=== PATIENT | male | born 1995 | race Caucasian/White ===

== ENCOUNTER 2020-10-31 13:44 | Outpatient (REF) | payer MEDICAID, SELFPAY | END 2020-10-31 13:45 | disposition home or self-care (01) | LOC: HO.LAB 13:44 | PROVIDERS: Visit Provider Internal Medicine | DX: Z20.822 Contact with and (suspected) exposure to COVID-19 (principal) | CPT/HCPCS: 36415; C9803; U0003; U0005 ==

== ENCOUNTER 2022-04-09 02:33 | Emergency (ER) | payer MEDICAID, SELFPAY ==
[2022-04-09 02:53] VITALS: BP 126/70; PULSE 91; O2SAT 97
[2022-04-09 02:54] VITALS: BP 105/65; PULSE 81; RESP 16; TEMP 36.8; O2SAT 94; BMI 19.0
[2022-04-09 02:59] VITALS: PULSE 72; RESP 12; O2SAT 96
--- NOTE | 2022-04-09 03:07 | ED.OVERDOSE ---
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 takes 1 or 2 tablets a day today he took a pill which was given by bystander after taking the pill patient been feeling like a zombie feel too strong making him tired vomited 1 time prior to arrival patient denied use of fentanyl or other opiates in the past other than Percocet Related Data Allergies Allergy/AdvReac Type Severity Reaction Status Date / Time No Known Allergies Allergy Unverified 06/13/20 17:08 Review of Systems Review of Systems: Yes all other systems are reviewed and are negative Physical Exam Vital Signs: Vital Signs: Last Vital Signs Temp 98.2 F 04/09/22 02:54 Pulse 72 04/09/22 02:59 Resp 12 04/09/22 02:59 BP 105/65 04/09/22 02:54 Pulse Ox 96 04/09/22 02:59 O2 Del Method 04/09/22 02:59 BMI result Body Mass Index 19.0 Appearance: Alert. Oriented X3. No acute distress. Eyes: Pinpoint pupils, No Nystagmus ENT: Pharynx normal. Oral Mucosa moist Neck: Normal inspection. Neck supple. CVS: Normal heart rate and rhythm. Pulses normal. Respiratory: No respiratory distress. Equal air entry bilateral, no wheezing/rales/rhonchi Abdomen: Soft and nontender. Bowel sounds are present, no mass palpable, no CVA tenderness Skin: Skin warm and dry. Normal skin color. Normal skin turgor. Extremities: No lower extremity edema. No calf tenderness Neuro: Oriented X 3. No motor deficit. No sensory deficit.No cerebellar signs , cranial nerves II-XII intact MDM - Overdose MDM Narrative Medical decision making narrative: Patient urine positive for fentanyl likely patient was given fentanyl instead of Percocet patient does not want to go to detox at this time with follow-up with detox as outpatient Lab Data Attestation: I reviewed the patient's lab results. Labs: Lab Results 04/09/22 Range/Units 03:55 Urine Opiates Screen POSITIVE H (Not Detect) Urine Fentanyl Screen POSITIVE H (Not Detect) Ur Barbiturates Screen Not Detected (Not Detect) Ur Phencyclidine Scrn Not Detected (Not Detect) Ur Amphetamines Screen Not Detected (Not Detect) U Benzodiazepines Scrn POSITIVE H (Not Detect) Urine Cocaine Screen Not Detected (Not Detect) U Marijuana (THC) Screen POSITIVE H (Not Detect) Discharge Plan Discharge Clinical Impression: Accidental opiate poisoning Patient Disposition: Home, Self-Care Instructions: Opioid Use Disorder (ED) Additional Instructions: Do not use drugs/opiate Follow up with detox
--- NOTE | 2022-04-09 03:58 | PC.NURSE ---
pt ambulated to [facility] to void. demonstrated steady gait, no c/o pain or dizziness
[2022-04-09 04:23] LABS: Amphetamine Screen Urine Not Detected (Not Detect); Barbiturates, Urine Not Detected (Not Detect); Benzodiazepines Screen Urine POSITIVE (Not Detect); Cannabinoid Screen Urine POSITIVE (Not Detect); Cocaine Screen Urine Not Detected (Not Detect); Fentanyl, urine POSITIVE (Not Detect); Opiate Screen Urine POSITIVE (Not Detect); Phencyclidine Screen Urine Not Detected (Not Detect)
--- NOTE | 2022-04-09 05:06 | PC.NURSE ---
pt ambulatory out of ER. pt given bruce lien and saltines
[2022-04-09 05:08] VITALS: PULSE 80; RESP 16; O2SAT 98
== END 2022-04-09 05:27 | disposition home or self-care (01) ==
LOC: HO.ED 05:07
PROVIDERS: Emergency Provider Internal Medicine
DX: T40.2X1A Poisoning by other opioids, accidental (unintentional), initial encounter (principal); Y92.9 Unspecified place or not applicable; Z79.899 Other long term (current) drug therapy
CPT/HCPCS: 80307; 99284; 99285